=== PATIENT | male | born 1990 | race Two or more races ===

== ENCOUNTER 2021-02-07 11:59 | Emergency (ER) | payer OTHER ==
[~2021-02-07] VITALS: Ht 177.8 cm; Wt 113.4 kg
[2021-02-07] MEDS ORDERED: traMADol HCL 50 MG TAB PO ONE ×2 (12:15→13:30)
[2021-02-07 14:42] VITALS: BP 156/99
== END 2021-02-07 14:30 ==
LOC: EEVIPCON 11:59 → ER 11:59
DX: S86.911A Strain of unspecified muscle(s) and tendon(s) at lower leg level, right leg, initial encounter (principal); Z87.891 Personal history of nicotine dependence; X58.XXXA Exposure to other specified factors, initial encounter; Y93.89 Activity, other specified; Y92.89 Other specified places as the place of occurrence of the external cause; Y99.8 Other external cause status
CPT/HCPCS: 93971